=== PATIENT | female | born 1995 | race Caucasian/White ===

== ENCOUNTER 2021-09-10 09:46 | Outpatient (CLI) | payer OTHER, SELFPAY ==
[2021-09-11 22:07] LABS: Chlamydia By Nucleic Acid AMP Negative (Negative)
[2021-09-12 10:21] LABS: Gonococcus By Nucleic Acid AMP Negative (Negative)
[2021-09-15 09:48] LABS: HPV APTIMA, High Risk Negative (Negative)
[2021-09-15 09:53] LABS: HPV Reflexed? YES, CHARGE PATIENT
== END 2021-09-10 23:59 | disposition home or self-care (01) ==
PROVIDERS: Visit Provider Nurse Practitioner Women's Health
DX: Z12.4 Encounter for screening for malignant neoplasm of cervix (principal); Z11.3 Encounter for screening for infections with a predominantly sexual mode of transmission
CPT/HCPCS: 87491; 87591; 87624; 88175; G0145